=== PATIENT | male | born 2000 | race Caucasian/White ===

== ENCOUNTER 2021-08-05 14:06 | Emergency (ER) | payer OTHER ==
[~2021-08-05] VITALS: Ht 160 cm; Wt 90.3 kg
[2021-08-05 14:55] VITALS: BP 132/70
--- NOTE | 2021-08-05 14:56 | NUR ---
Yadira maya in [facility] - 08/05/21 at 1503 by SHAHIDA Pt returned to tent from RAD
--- NOTE | 2021-08-05 14:56 | NUR ---
Pt returned to LOBBY from RAD
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
[2021-08-05] MEDS ORDERED: ACET-10509 PO (16:05)
[2021-08-05] MEDS ORDERED: IBUPROFEN 600 MG TAB PO ONE (16:05)
[2021-08-05] MEDS ORDERED: IBUP-2213 PO (16:05)
--- NOTE | 2021-08-05 16:42 | NUR ---
PER [facility] PT RIGHT LOWER ARM WAS SPLINTED AND PMCS WAS ASSESSED BEFORE AND AFTER ALL WNL. [facility] ASSESSED SPLINT AND APPROVED.
[2021-08-05 17:04] VITALS: BP 130/71
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
== END 2021-08-05 17:04 | disposition home or self-care (01) ==
LOC: MED 14:06
DX: S62.346A Nondisplaced fracture of base of fifth metacarpal bone, right hand, initial encounter for closed fracture (principal); F12.90 Cannabis use, unspecified, uncomplicated; Z79.899 Other long term (current) drug therapy; Y04.0XXA Assault by unarmed brawl or fight, initial encounter; Y93.89 Activity, other specified; Y92.89 Other specified places as the place of occurrence of the external cause; Y99.8 Other external cause status
CPT/HCPCS: 73130; 99283